=== PATIENT | female | born 1955 | race Two or more races ===

== ENCOUNTER 2024-12-16 09:30 | Outpatient (RCR) | payer MEDICARE, SELFPAY ==
--- NOTE | 2024-11-25 16:13 | PTNOTE_ITS ---
PT OP Initial Eval Patient Information Outpatient Physical Therapy Treatment Date: 11/25/24 Visit Reasons: Weakness Medical Diagnosis: R29.898 Treatment Dx #1: BLE Weakness Start of Care: 11/25/24 Date of Onset: July 2024 Smoking Status Smoking Status: Never smoker Initial Assessment Subjective: Pt is a 69 y/o female reports of leg pain and weakness L>R started in July 2024. Pt mentioned that her doctor told her she may not be able to return back to work where she used to work 2 jobs. Pt has limitation with standing, walking, balance, work duties, chores, and performing recreational activities. Objective: BLE AROM: all motions are WFL BLE MMTs: grossly 3+/5 Sit-Stand Test: 8 reps Muscle Length: Hs tightness Assessment: Pt demonstrate BLE pain and weakness L>R leading to difficulty with ADLs. 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 1) Increase BLE AROM WNL in 6 wks to be able to perform chores 2) Increase BLE MMTs grossly to 4-/5 in 6 wks to be able to walk more than 30 mins 3) Increase sit to stand reps to 11 in 6 wks to improved overall BLE endurance to be to cook 4) Decrease BLE pain to 2/10 in 6 wks to be able to stand longer than 30 mins 5) Indep with HEP Treatment Plan 1) Manual Therapy 2) Therapeutic Activities 3) Therapeutic Exercises 4) Modalities (ice, heat) 5) Balance Training 6) Gait Training Frequency and Duration: 2 x wk for 6 wks Certification Dates: 11/25/24 to 02/25/25 Procedure Charges OP PT Eval Mod Complex 30 minutes: Yes
--- NOTE | 2024-12-07 11:15 | PT.ODAYNRPT ---
PT Outpatient Daily Note OP Daily Note Outpatient Physical Therapy Treatment Date: 12/07/24 Visit Reasons: Weakness Subjective: Pt's legs continue to feel weak but also painful. Objective: Please see flow chart for list of ther ex performed Assessment: encouraged to complete instructed exercises no resistance added due to reported pain at the beginning of PT session. Pt tolerate all exercises performed Plan: Continue with PT Length of Time (minutes) of Treatment: 30 Minutes Procedure Charges Therapeutic Exercise 30 minutes: Yes
--- NOTE | 2024-12-09 11:31 | PT.ODAYNRPT ---
PT Outpatient Daily Note OP Daily Note Outpatient Physical Therapy Treatment Date: 12/09/24 Visit Reasons: Weakness Subjective: Pt's legs are weak and painful. Pt has a follow up appt with PCP next week and will discuss about disability and what the plan is moving forward. Objective: Please see flow chart for list of ther ex performed Assessment: added more closed chain with good tolerance. Frequent complaints of legs hurting with exercises throughout PT session but able to complete instructed reps. Plan: Continue with PT Length of Time (minutes) of Treatment: 30 Minutes Procedure Charges Therapeutic Exercise 30 minutes: Yes
--- NOTE | 2024-12-14 10:17 | PTNOTE_ITS ---
PT Outpatient Daily Note OP Daily Note Outpatient Physical Therapy Treatment Date: 12/14/24 Visit Reasons: Weakness Subjective: Pt reports she is tired did not get much sleep. Objective: Please see flow sheet for ther ex list. Assessment: Pt demonstrates good tolerance with added standing marches, uses B UE for standing balance. Plan: Continue with POC. Length of Time (minutes) of Treatment: 30 Minutes MOTOR VEHICLES INSPECTOR Service Modifier Method I: Divide the number of min of care provided by the MOTOR VEHICLES INSPECTOR/ORACLE E BUSINESS DEVELOPER by the total min of care provided then multiply by 100. If greater than 11 percent modifier is required. Method II: Divide the total time of care provided to patient by 10 (round to the nearest whole number) and add 1 min. to set the minimum time requirement. If treatment total was 60 min., then 10% of 6 min PT CQ modifier applied: CQ Modifier applied Procedure Charges Therapeutic Exercise 30 minutes: Yes
--- NOTE | 2024-12-16 12:02 | PT.ODS1RPT ---
PT OP Progress/Discharge Note Date of Service: 12/16/24 Progress Note/DC Note Progress Note/Discharge Note: DC Note Patient Information Visit Reasons: Weakness Medical Diagnosis: R29.898 Treatment Dx #1: BLE Weakness Service Discharge Date: 12/16/24 Status Subjective: Pt's leg pain and weakness is the same. Pt seen PCP yesterday and is planning to refer her out to a home sales service professional. Pt still has difficulty with prolonged standing, walking, chores, self care, and performing recreational activities. Objective: BLE AROM: all motions are WFL BLE MMTs: grossly 3+/5 Sit-Stand Test: 7 reps Muscle Length: Hs tightness Assessment: Pt demonstrate functional BLE mobility and strength, however, no change in overall pain leading to difficulty with ADLs. Pt will no longer benefit from physical therapy due to plateau towards goals. Pt was instructed on HEP last session and educated to continue exercises to maintain overall mobility. Pt performed all exercises safely, thank you for your referrals. Plan: D/C home with HEP and follow up with MD PEREIRA Procedure Charges Therapeutic Exercise 30 minutes: Yes
== END 2024-12-19 23:59 | disposition home or self-care (01) ==
LOC: CPTX 09:30
PROVIDERS: PCP Family Medicine; Referring Provider Family Medicine; Visit Provider Family Medicine
DX: M79.605 Pain in left leg (principal); M79.604 Pain in right leg; R53.1 Weakness; R29.898 Other symptoms and signs involving the musculoskeletal system; R26.2 Difficulty in walking, not elsewhere classified; R26.89 Other abnormalities of gait and mobility
CPT/HCPCS: 97110; 97162